=== PATIENT | female | born 1955 | race Caucasian/White ===

== ENCOUNTER 2018-08-11 14:48 | Outpatient (REF) | payer BC, SELFPAY ==
[2018-08-11 21:22] LABS: Potassium 4.9 mmol/L (3.5-5.1)
== END 2018-08-11 15:08 ==
LOC: NCHCN 14:48
PROVIDERS: PCP Family Medicine; Visit Provider Family Medicine
DX: E87.5 Hyperkalemia (principal)
CPT/HCPCS: 84132

== ENCOUNTER 2019-08-20 10:27 | Outpatient (REF) | payer BC, SELFPAY ==
[2019-08-20 21:33] LABS: Anion Gap 8.2 mmol/L (3-11); BUN 21 mg/dL (7-18); CO2 29.8 mmol/L (21.0-32.0); CREATININE 0.96 mg/dL (0.55-1.02); Calcium 9.4 mg/dL (8.5-10.1); Calculated LDL 76 mg/dL; Chloride 102 mmol/L (98-107); Cholesterol 178 mg/dL (50-200); Estimated GFR 58.89 (mL/min/1.73m2); Glucose 106 mg/dL (70-100); HDL Cholesterol 74 mg/dL (40-60); Potassium 4.5 mmol/L (3.5-5.1); Sodium 140 mmol/L (136-145); TSH (W/Ref FT4) 1.55 uIU/mL (0.36-3.74); Triglyceride 143 mg/dL (30-150)
== END 2019-08-20 10:47 ==
LOC: NCHCN 10:27
PROVIDERS: PCP Family Medicine; Visit Provider Family Medicine
DX: I10 Essential (primary) hypertension (principal); Z13.220 Encounter for screening for lipoid disorders; R53.83 Other fatigue
CPT/HCPCS: 80048; 80061; 84443

== ENCOUNTER 2020-02-15 10:36 | Outpatient (REF) | payer BC, SELFPAY ==
[2020-02-15 21:09] LABS: Anion Gap 4.8 mmol/L (3-11); BUN 23 mg/dL (7-18); CO2 32.2 mmol/L (21.0-32.0); CREATININE 0.89 mg/dL (0.55-1.02); Calcium 9.7 mg/dL (8.5-10.1); Chloride 101 mmol/L (98-107); Glucose 188 mg/dL (74-106); Potassium 4.7 mmol/L (3.5-5.1); Sodium 138 mmol/L (136-145)
== END 2020-02-15 10:56 ==
LOC: NCHCN 10:36
PROVIDERS: PCP Family Medicine; Visit Provider Registered Nurse
DX: I10 Essential (primary) hypertension (principal)
CPT/HCPCS: 80048

== ENCOUNTER 2020-04-06 09:10 | Outpatient (REF) | payer BC, SELFPAY ==
[2020-04-06 21:31] LABS: Abs Immature Grans 0.01 k/cumm (0.0-0.09); Absolute Basophil Count 0.01 k/cumm (0.0-0.2); Absolute Eosinophil Count 0.07 k/cumm (0.0-0.7); Absolute Lymphocyte Count 1.91 k/cumm (1.2-3.4); Absolute Monocyte Count 0.82 k/cumm (0.11-0.7); Absolute Neutrophil Count 3.93 k/cumm (1.2-6.7); Basophils % 0.1; HCT 42.8 % (36.0-46.0); Immature Grans % 0.1 %; Lymphocytes % 28.3; Mean Corp. HGB Concentration 32.7 g/dL (32.0-36.0); Mean Corpuscular Hemoglobin 29.9 pg (27.0-33.0); Mean Corpuscular Volume 91.3 fL (80-95); Mean Platelet Volume 11.3 fL (8.0-11.0); Monocytes % 12.1; Neutrophils % 58.4; Platelet Count 290 x1000/uL (130-400); RBC 4.69 m/cumm (4.00-5.20); RBC Distribution Width 14.2 % (11.7-14.6); White Blood Cell Count 6.75 k/cumm (4.4-10.8)
[2020-04-06 22:13] LABS: COMMENT (LAB VIEW ONLY) 70.74 mg/dL; Microalb ug/mg Crea 6.8 ug/mg Cr
[2020-04-06 22:19] LABS: Vitamin B12 > 2000 pg/mL (193-986)
[2020-04-07 04:53] LABS: Vitamin D 25 Total 52.8 ng/ml (30-100)
[2020-04-11 13:07] LABS: IgA 226 mg/dL (85-499); Tissue Transglutaminase IgA <1.2 U/mL (<4.0)
== END 2020-04-06 09:30 ==
LOC: NCHCN 09:10
PROVIDERS: PCP Family Medicine; Visit Provider Registered Nurse
DX: E11.9 Type 2 diabetes mellitus without complications (principal); R19.7 Diarrhea, unspecified
CPT/HCPCS: 82306; 82784; 83516; 82043; 82570; 82607; 85025

== ENCOUNTER 2020-04-07 23:29 | Outpatient (REF) | payer BC, SELFPAY | END 2020-04-07 23:49 | LOC: NCHCN 23:29 | PROVIDERS: PCP Family Medicine; Visit Provider Registered Nurse | DX: R19.7 Diarrhea, unspecified (principal) | CPT/HCPCS: 83630; 87324 ==

== ENCOUNTER 2020-04-25 22:30 | Outpatient (REF) | payer BC, SELFPAY | END 2020-04-25 22:50 | LOC: NCHCN 22:30 | PROVIDERS: PCP Family Medicine; Visit Provider Nurse Practitioner Family | DX: N39.0 Urinary tract infection, site not specified (principal) | CPT/HCPCS: 87077; 87086; 87186 ==

== ENCOUNTER 2020-04-28 21:19 | Outpatient (REF) | payer BC, SELFPAY | END 2020-04-28 21:39 | LOC: NCHCN 21:19 | PROVIDERS: PCP Family Medicine; Visit Provider Nurse Practitioner Family | DX: R19.7 Diarrhea, unspecified (principal) | CPT/HCPCS: 87324 ==

== ENCOUNTER 2020-05-25 21:25 | Outpatient (REF) | payer BC, SELFPAY ==
[2020-05-25 20:48] LABS: Abs Immature Grans 0.02 10^3/uL (0.0-0.06); Absolute Basophil Count 0.04 10^3/uL (0.0-0.2); Absolute Eosinophil Count 0.08 10^3/uL (0.0-0.7); Absolute Lymphocyte Count 1.71 10^3/uL (1.2-3.4); Absolute Monocyte Count 0.59 10^3/uL (0.1-0.8); Absolute Neutrophil Count 4.73 10^3/uL (1.2-6.7); Basophils % 0.6; Eosinophils % 1.1; HCT 43.4 % (36.0-46.0); HGB 13.8 g/dL (11.2-15.7); Immature Grans % 0.3; Lymphocytes % 23.8; MCH 29.4 pg (27.0-33.0); MCHC 31.8 % (32.0-36.0); MCV 92.3 fL (80-95); MPV 10.6 fL (8.0-11.0); Monocytes % 8.2; Nucleated RBC 0 %; Platelet Count 321 10^3/uL (130-400); RDW 14.1 % (11.7-14.6); RDW-SD 47.9 fL; WBC 7.17 10^3/uL (4.4-10.8)
[2020-05-25 21:06] LABS: ALT 40 U/L (14-59); AST 26 U/L (15-37); Albumin 3.7 g/dL (3.4-5.0); Alkaline Phosphatase 72 U/L (46-116); Anion Gap 11.5 mmol/L (3-11); BUN 21 mg/dL (7-18); Bilirubin, Total 0.5 mg/dL (0.2-1.0); CO2 24.5 mmol/L (21.0-32.0); CREATININE 1.05 mg/dL (0.55-1.02); Calcium 9.2 mg/dL (8.5-10.1); Chloride 104 mmol/L (98-107); Estimated GFR 52.93 (mL/min/1.73m2); Glucose 186 mg/dL (74-106); Potassium 4.3 mmol/L (3.5-5.1); Sodium 140 mmol/L (136-145); Total Protein 7.1 g/dL (6.4-8.2)
[2020-05-25 21:15] LABS: Lipase 166 U/L (73-393)
[2020-05-25 21:44] LABS: ESR 14 mm/hr (0-30)
[2020-05-27 11:02] LABS: Campylobacter PCR Negative (Negative); Salmonella PCR Negative (Negative); Shiga Toxin PCR Negative (Negative); Shigella/Enteroinvasive Ecoli Negative (Negative)
== END 2020-05-25 21:45 ==
LOC: NCHCN 21:25
PROVIDERS: PCP Family Medicine; Visit Provider Family Medicine
DX: R10.13 Epigastric pain (principal); R19.7 Diarrhea, unspecified
CPT/HCPCS: 80053; 83690; 85652; 87329; 87505; 85025

== ENCOUNTER 2020-06-13 20:56 | Outpatient (REF) | payer BC, SELFPAY | END 2020-06-13 21:16 | LOC: NCHCN 20:56 | PROVIDERS: PCP Family Medicine; Visit Provider Nurse Practitioner Family | DX: N39.0 Urinary tract infection, site not specified (principal) | CPT/HCPCS: 87077; 87086; 87186 ==

== ENCOUNTER 2021-04-14 10:47 | Outpatient (REF) | payer BC, SELFPAY ==
[2021-04-14 22:02] LABS: Anion Gap 5.3 mmol/L (3-11); BUN 27 mg/dL (7-18); CO2 31.7 mmol/L (21.0-32.0); CREATININE 1.2 mg/dL (0.55-1.02); Calcium 9.6 mg/dL (8.5-10.1); Chloride 102 mmol/L (98-107); Estimated GFR 45.23 (mL/min/1.73m2); Glucose 141 mg/dL (74-106); Potassium 3.9 mmol/L (3.5-5.1); Sodium 139 mmol/L (136-145)
== END 2021-04-14 10:48 | disposition home or self-care (01) ==
LOC: NCHCN 10:47
PROVIDERS: PCP Family Medicine; Visit Provider Family Medicine
DX: E11.9 Type 2 diabetes mellitus without complications (principal)
CPT/HCPCS: 80048

== ENCOUNTER 2021-05-12 09:40 | Outpatient (REF) | payer BC, SELFPAY ==
[2021-05-12 15:00] LABS: Anion Gap 3.6 mmol/L (3-11); BUN 27 mg/dL (7-18); CO2 33.4 mmol/L (21.0-32.0); CREATININE 0.9 mg/dL (0.55-1.02); Calcium 9.2 mg/dL (8.5-10.1); Chloride 106 mmol/L (98-107); Glucose 116 mg/dL (74-106); Potassium 4.5 mmol/L (3.5-5.1); Sodium 143 mmol/L (136-145)
== END 2021-05-12 09:41 | disposition home or self-care (01) ==
LOC: NCHCN 09:40
PROVIDERS: PCP Family Medicine; Visit Provider Family Medicine
DX: R60.0 Localized edema (principal); I10 Essential (primary) hypertension
CPT/HCPCS: 80048

== ENCOUNTER 2021-06-13 15:05 | Outpatient (REF) | payer BC, SELFPAY ==
[2021-06-13 17:30] LABS: COMMENT (LAB VIEW ONLY) 161.67 mg/dL; Microalb ug/mg Crea 15.8 ug/mg Cr
== END 2021-06-13 15:06 | disposition home or self-care (01) ==
LOC: NCHCN 15:05
PROVIDERS: PCP Family Medicine; Visit Provider Family Medicine
DX: E11.9 Type 2 diabetes mellitus without complications (principal); N39.0 Urinary tract infection, site not specified; R60.9 Edema, unspecified; M54.5 Low back pain
CPT/HCPCS: 82043; 82570

== ENCOUNTER 2022-03-09 19:34 | Outpatient (REF) | payer BC, SELFPAY | END 2022-03-09 19:35 | disposition home or self-care (01) | LOC: NCHCN 19:34 | PROVIDERS: PCP Family Medicine; Visit Provider Registered Nurse ==

== ENCOUNTER 2022-05-11 21:05 | Outpatient (REF) | payer BC, MEDICARE, SELFPAY ==
[2022-05-11 16:31] LABS: TSH 0.92 uIU/mL (0.36-3.74)
[2022-05-11 16:47] LABS: Vitamin B12 > 2000 pg/mL (193-986)
[2022-05-11 17:36] LABS: COMMENT (LAB VIEW ONLY) 143.69 mg/dL; Microalb ug/mg Crea 6.8 ug/mg Cr
[2022-05-11 17:52] LABS: Iron 108 ug/dL (50-170); Total Iron Binding Capacity 369 ug/dL (250-450); Transferrin Sat 29 % (15-50)
[2022-05-14 06:00] LABS: Vitamin D 25 Total 45.2 ng/mL (30-100)
== END 2022-05-11 21:06 | disposition home or self-care (01) ==
LOC: NCHCN 21:05
PROVIDERS: PCP Family Medicine; Visit Provider Family Medicine
DX: K86.81 Exocrine pancreatic insufficiency (principal); R51.9 Headache, unspecified; R11.0 Nausea; R53.83 Other fatigue; Z00.00 Encounter for general adult medical examination without abnormal findings; E11.9 Type 2 diabetes mellitus without complications
CPT/HCPCS: 82306; 82043; 82570; 82607; 83540; 83550; 84443

== ENCOUNTER 2023-04-09 15:50 | Outpatient (REF) | payer BC, MEDICARE, SELFPAY ==
[2023-04-09 21:19] LABS: COMMENT (LAB VIEW ONLY) 119.71 mg/dL; Microalb ug/mg Crea 2.8 ug/mg Cr
== END 2023-04-09 15:51 | disposition home or self-care (01) ==
LOC: NCHCN 15:50
PROVIDERS: PCP Family Medicine; Visit Provider Family Medicine
DX: E11.9 Type 2 diabetes mellitus without complications (principal)
CPT/HCPCS: 82043; 82570

== ENCOUNTER 2023-06-10 13:20 | Outpatient (REF) | payer BC, MEDICARE, SELFPAY ==
[2023-06-10 15:12] LABS: Abs Immature Grans 0.04 10^3/uL (0.0-0.06); Absolute Basophil Count 0.06 10^3/uL (0.0-0.2); Absolute Eosinophil Count 0.24 10^3/uL (0.0-0.7); Absolute Lymphocyte Count 2.38 10^3/uL (1.2-3.4); Absolute Monocyte Count 1.03 10^3/uL (0.1-0.8); Absolute Neutrophil Count 5.43 10^3/uL (1.2-6.7); Basophils % 0.7; Eosinophils % 2.6; HCT 39.5 % (36.0-46.0); HGB 12.7 g/dL (11.2-15.7); Immature Grans % 0.4; Lymphocytes % 25.9; MCH 27.5 pg (27.0-33.0); MCHC 32.2 % (32.0-36.0); MCV 86 fL (80-95); MPV 9.9 fL (8.0-11.0); Monocytes % 11.2; Neutrophils % 59.2; Platelet Count 354 10^3/uL (130-400); RBC 4.61 10^6/uL (3.93-5.22); RDW 14.8 % (11.7-14.6); RDW-SD 46.5 fL; WBC 9.18 10^3/uL (4.4-10.8)
[2023-06-10 15:25] LABS: ALT 63 U/L (14-59); AST 34 U/L (15-37); Albumin 3.4 g/dL (3.4-5.0); Alkaline Phosphatase 89 U/L (46-116); Anion Gap 6.4 mmol/L (3-11); BUN 19 mg/dL (7-18); Bilirubin, Total 0.5 mg/dL (0.2-1.0); CO2 29.6 mmol/L (21.0-32.0); CREATININE 0.7 mg/dL (0.55-1.02); Chloride 103 mmol/L (98-107); Estimated GFR 95.32 (mL/min/1.73m2); Glucose 100 mg/dL (74-106); Magnesium 2.2 mg/dL (1.8-2.4); Potassium 3.6 mmol/L (3.5-5.1); Sodium 139 mmol/L (136-145); Total Protein 7.2 g/dL (6.4-8.2)
[2023-06-10 15:59] LABS: C Diff PCR Negative (Negative)
== END 2023-06-10 13:21 | disposition home or self-care (01) ==
LOC: NCHCN 13:20
PROVIDERS: PCP Family Medicine; Visit Provider Family Medicine
DX: R19.7 Diarrhea, unspecified (principal); E89.6 Postprocedural adrenocortical (-medullary) hypofunction
CPT/HCPCS: 80053; 87493; 83735; 85025

== ENCOUNTER 2023-06-14 11:19 | Outpatient (REF) | payer BC, MEDICARE, SELFPAY ==
[2023-06-14 16:26] LABS: C Diff PCR Negative (Negative)
== END 2023-06-14 11:20 | disposition home or self-care (01) ==
LOC: NCHCN 11:19
PROVIDERS: PCP Family Medicine; Visit Provider Family Medicine
DX: R19.7 Diarrhea, unspecified (principal)
CPT/HCPCS: 87493

== ENCOUNTER 2023-08-15 21:41 | Outpatient (REF) | payer BC, MEDICARE, SELFPAY | END 2023-08-15 21:42 | disposition home or self-care (01) | LOC: NCHCN 21:41 | PROVIDERS: PCP Family Medicine; Visit Provider Family Medicine | DX: N39.0 Urinary tract infection, site not specified (principal) | CPT/HCPCS: 87077; 87086; 87186 ==

== ENCOUNTER 2023-10-08 20:32 | Outpatient (REF) | payer BC, MEDICARE, SELFPAY ==
[2023-10-08 20:46] LABS: ESR 12 mm/hr (0-30)
[2023-10-08 20:47] LABS: Abs Immature Grans 0.02 10^3/uL (0.0-0.06); Absolute Basophil Count 0.03 10^3/uL (0.0-0.2); Absolute Eosinophil Count 0.03 10^3/uL (0.0-0.7); Absolute Lymphocyte Count 1.49 10^3/uL (1.2-3.4); Absolute Monocyte Count 0.82 10^3/uL (0.1-0.8); Absolute Neutrophil Count 3.95 10^3/uL (1.2-6.7); Basophils % 0.5; Eosinophils % 0.5; HCT 42.1 % (36.0-46.0); HGB 13.7 g/dL (11.2-15.7); Immature Grans % 0.3; Lymphocytes % 23.5; MCH 28.1 pg (27.0-33.0); MCHC 32.5 % (32.0-36.0); MCV 86 fL (80-95); MPV 9.9 fL (8.0-11.0); Monocytes % 12.9; Neutrophils % 62.3; Platelet Count 322 10^3/uL (130-400); RBC 4.88 10^6/uL (3.93-5.22); RDW 15.8 % (11.7-14.6); RDW-SD 49.2 fL; WBC 6.34 10^3/uL (4.4-10.8)
[2023-10-08 21:12] LABS: ALT 50 U/L (14-59); AST 40 U/L (15-37); Albumin 3.7 g/dL (3.4-5.0); Alkaline Phosphatase 98 U/L (46-116); Anion Gap 10.2 mmol/L (3-11); BUN 26 mg/dL (7-18); Bilirubin, Total 0.3 mg/dL (0.2-1.0); CO2 24.8 mmol/L (21.0-32.0); CREATININE 1.1 mg/dL (0.55-1.02); Calcium 9.2 mg/dL (8.5-10.1); Chloride 102 mmol/L (98-107); Estimated GFR 55.42 (mL/min/1.73m2); Glucose 155 mg/dL (74-106); Potassium 4.5 mmol/L (3.5-5.1); Sodium 137 mmol/L (136-145); TSH 1.06 uIU/mL (0.36-3.74); Total Protein 7.7 g/dL (6.4-8.2)
[2023-10-08 21:15] LABS: Folate > 20.0 ng/mL (8.6-20.0)
== END 2023-10-08 20:33 | disposition home or self-care (01) ==
LOC: NCHCN 20:32
PROVIDERS: PCP Family Medicine; Visit Provider Family Medicine
DX: M06.9 Rheumatoid arthritis, unspecified (principal)
CPT/HCPCS: 80053; 85652; 82746; 84443; 85025; 86140

== ENCOUNTER 2024-03-20 09:19 | Outpatient (REF) | payer BC, MEDICARE, SELFPAY ==
[2024-03-20 14:44] LABS: Anion Gap 7.3 mmol/L (3-11); BUN 25 mg/dL (7-18); CO2 29.7 mmol/L (21.0-32.0); CREATININE 1.1 mg/dL (0.55-1.02); Chloride 103 mmol/L (98-107); Estimated GFR 55.07 (mL/min/1.73m2); Glucose 113 mg/dL (74-106); Potassium 4.8 mmol/L (3.5-5.1); Sodium 140 mmol/L (136-145)
== END 2024-03-20 09:20 | disposition home or self-care (01) ==
LOC: NCHCN 09:19
PROVIDERS: PCP Family Medicine; Visit Provider Family Medicine
DX: I10 Essential (primary) hypertension (principal)
CPT/HCPCS: 80048

== ENCOUNTER 2024-05-28 22:12 | Outpatient (REF) | payer BC, MEDICARE, SELFPAY ==
[2024-05-28 21:45] LABS: Abs Immature Grans 0.05 10^3/uL (0.0-0.06); Absolute Basophil Count 0.05 10^3/uL (0.0-0.2); Absolute Eosinophil Count 0.07 10^3/uL (0.0-0.7); Absolute Lymphocyte Count 1.39 10^3/uL (1.2-3.4); Absolute Monocyte Count 0.79 10^3/uL (0.1-0.8); Absolute Neutrophil Count 4.72 10^3/uL (1.2-6.7); Basophils % 0.7 %; HCT 39.7 % (36.0-46.0); HGB 12.8 g/dL (11.2-15.7); Immature Grans % 0.7 %; Lymphocytes % 19.7 %; MCH 30.9 pg (27.0-33.0); MCHC 32.2 % (32.0-36.0); MCV 96 fL (80-95); MPV 10.2 fL (8.0-11.0); Monocytes % 11.2 %; Neutrophils % 66.7 %; Platelet Count 320 10^3/uL (130-400); RBC 4.14 10^6/uL (3.93-5.22); RDW 13.4 % (11.7-14.6); WBC 7.07 10^3/uL (4.4-10.8)
[2024-05-28 21:50] LABS: ALT 46 U/L (14-59); AST 38 U/L (15-37); Albumin 3.8 g/dL (3.4-5.0); Alkaline Phosphatase 112 U/L (46-116); Anion Gap 6.2 mmol/L (3-11); BUN 19 mg/dL (7-18); Bilirubin, Total 0.41 mg/dL (0.2-1.0); CO2 29.8 mmol/L (21.0-32.0); CREATININE 1.2 mg/dL (0.55-1.02); Calcium 9.2 mg/dL (8.5-10.1); Chloride 105 mmol/L (98-107); Estimated GFR 49.61 (mL/min/1.73m2); Glucose 164 mg/dL (74-106); Potassium 4.6 mmol/L (3.5-5.1); Sodium 141 mmol/L (136-145); Total Protein 7.4 g/dL (6.4-8.2)
== END 2024-05-28 22:13 | disposition home or self-care (01) ==
LOC: NCHCN 22:12
PROVIDERS: PCP Family Medicine; Visit Provider Family Medicine
DX: N18.30 Chronic kidney disease, stage 3 unspecified (principal); R68.83 Chills (without fever); R30.0 Dysuria; R82.998 Other abnormal findings in urine
CPT/HCPCS: 80053; 87077; 85025; 87086; 87186

== ENCOUNTER 2024-06-01 23:40 | Outpatient (REF) | payer BC, MEDICARE, SELFPAY | END 2024-06-01 23:41 | disposition home or self-care (01) | LOC: NCHCN 23:40 | PROVIDERS: PCP Family Medicine; Visit Provider Family Medicine | DX: N10 Acute pyelonephritis (principal) | CPT/HCPCS: 87077; 87086; 87186 ==

== ENCOUNTER 2024-06-29 13:25 | Outpatient (REF) | payer BC, MEDICARE, SELFPAY ==
[2024-06-29 14:38] LABS: Bilirubin Negative (Negative); Blood Negative (Negative); Clarity Sl Cloudy (Clear); Glucose Negative (Negative); Ketones Negative (Negative); Leukocyte Esterase Moderate (Negative); Nitrite Negative (Negative); pH 5.5 (5-8)
[2024-06-29 15:03] LABS: Bacteria Moderate HPF (Negative); C & S Indicated? Yes; Casts 0-2 Hyaline LPF (Negative); Crystals Negative HPF (Negative); Epithelial Cells Rare HPF (Negative); Mucus Negative (Negative); Other Cells Rare Renal (Negative); RBC Negative HPF (0-2); WBC >50 HPF (0-5)
== END 2024-06-29 13:26 | disposition home or self-care (01) ==
LOC: NCHCN 13:25
PROVIDERS: PCP Family Medicine; Visit Provider Family Medicine
DX: R30.0 Dysuria (principal); B96.29 Other Escherichia coli [E. coli] as the cause of diseases classified elsewhere
CPT/HCPCS: 87077; 81003; 81015; 87086; 87186

== ENCOUNTER 2024-08-21 16:03 | Outpatient (REF) | payer BC, MEDICARE, SELFPAY | END 2024-08-21 16:04 | disposition home or self-care (01) | LOC: NCHCN 16:03 | PROVIDERS: PCP Family Medicine; Visit Provider Family Medicine | DX: N39.0 Urinary tract infection, site not specified (principal); R82.89 Other abnormal findings on cytological and histological examination of urine | CPT/HCPCS: 87086 ==

== ENCOUNTER 2025-04-02 11:47 | Outpatient (REF) | payer BC, MEDICARE, SELFPAY ==
[2025-04-02 15:44] LABS: ALT 57 U/L (14-59); AST 55 U/L (15-37); Alkaline Phosphatase 78 U/L (46-116); Anion Gap 6.6 mmol/L (3-11); BUN 29 mg/dL (7-18); Bilirubin, Total 0.5 mg/dL (0.2-1.0); CO2 28.4 mmol/L (21.0-32.0); CREATININE 1.2 mg/dL (0.55-1.02); Calcium 9.4 mg/dL (8.5-10.1); Chloride 103 mmol/L (98-107); Estimated GFR 49.31 (mL/min/1.73m2); Glucose 101 mg/dL (74-106); Potassium 5.1 mmol/L (3.5-5.1); Sodium 138 mmol/L (136-145); Total Protein 7.4 g/dL (6.4-8.2)
[2025-04-02 15:45] LABS: Folate > 20.0 ng/mL (8.6-20.0); Vitamin B12 > 2000 pg/mL (193-986)
== END 2025-04-02 11:48 | disposition home or self-care (01) ==
LOC: NCHCN 11:47
PROVIDERS: PCP Family Medicine; Visit Provider Family Medicine
DX: E11.42 Type 2 diabetes mellitus with diabetic polyneuropathy (principal); I10 Essential (primary) hypertension
CPT/HCPCS: 80053; 82607; 82746

== ENCOUNTER 2025-10-19 21:17 | Outpatient (REF) | payer BC, MEDICARE, SELFPAY | END 2025-10-19 21:18 | disposition home or self-care (01) | LOC: NCHCN 21:17 | PROVIDERS: PCP Family Medicine; Visit Provider Family Medicine | DX: E11.8 Type 2 diabetes mellitus with unspecified complications (principal) | CPT/HCPCS: 82043; 82570 ==